=== PATIENT | female | born 1955 | race Caucasian/White ===

== ENCOUNTER 2018-11-02 18:18 | Emergency (ER) | payer BC ==
[2018-11-02] MEDS ORDERED: ONDANSETRON 4 MG TAB.RAPDIS PO ONE (21:58)
[2018-11-02] MEDS ORDERED: OXYCODONE-ACETAMINOPHEN 5-325 MG TABLET PO ONE (21:58)
--- NOTE | 2018-11-02 22:00 | ER Document Report ---
ED Medical Screen (RME) - General Chief Complaint: Chest Pain Stated Complaint: CHEST PAIN Time Seen by Provider: 11/02/18 21:54 Primary Care Provider: YVAN RUEDA MD [Primary Care Provider] - Follow up as needed Notes: 63-year-old female with chief complaint of upper abdominal pain, worse on the right side, started hurting around 5 PM, pain became much worse afterwards and then she vomited. She thinks she was diagnosed with a gallstone years ago but she is uncertain. She denies any abdominal surgeries. She denies chest pain, shortness of breath, dizziness, fever. TRAVEL OUTSIDE OF THE [place] IN LAST 30 DAYS: No - Related Data Allergies/Adverse Reactions: ibuprofen Allergy (Verified 07/13/17 16:08) INCREASE HEART RATE Past Medical History - Past Medical History Cardiac Medical History: Reports: Hx Hypercholesterolemia, Hx Hypertension Denies: Hx Coronary Artery Disease, Hx Heart Attack Pulmonary Medical History: Reports: Hx Pneumonia Denies: Hx Asthma, Hx Bronchitis, Hx COPD Neurological Medical History: Denies: Hx Cerebrovascular Accident, Hx Seizures Musculoskeltal Medical History: Reports Hx Arthritis - BACK Past Surgical History: Reports: Hx Gynecologic Surgery - D&C - Immunizations Hx Diphtheria, Pertussis, Tetanus Vaccination: Yes History of Influenza Vaccine for 06/2017 - 11/2017 Season: No Physical Exam - Vital signs Vitals: Temp Pulse Resp BP Pulse Ox 98.6 F 67 16 150/58 H 96 11/02/18 18:56 11/02/18 18:56 11/02/18 18:56 11/02/18 18:56 11/02/18 18:56 - Abdominal Tenderness: Tender - Tender in the right upper quadrant and the epigastric area, remaining abdomen benign Course - Vital Signs Vital signs: Temp Pulse Resp BP Pulse Ox 98.6 F 67 16 150/58 H 96 11/02/18 18:56 11/02/18 18:56 11/02/18 18:56 11/02/18 18:56 11/02/18 18:56 Doctor's Discharge - Discharge Referrals: YVAN RUEDA MD [Primary Care Provider] - Follow up as needed
[2018-11-02 22:45] LABS: ABSOLUTE BASOPHILS # (AUTO) 0.1 10^3/uL (0.0-0.2); ABSOLUTE EOSINOPHILS # (AUTO) 0.1 10^3/uL (0.0-0.6); ABSOLUTE LYMPHOCYTES (AUTO) 1.8 10^3/uL (0.5-4.7); ABSOLUTE MONOCYTES (AUTO) 0.8 10^3/uL (0.1-1.4); ABSOLUTE NEUT (AUTO) 9.3 10^3/uL (1.7-8.2); BASOPHILS % (AUTO) 0.4 % (0-2); EOSINOPHILS % (AUTO) 0.4 % (0-6); HEMATOCRIT 41.5 % (36.0-47.0); HEMOGLOBIN 14.3 g/dL (12.0-15.5); MEAN CORPUSCULAR HEMOGLOBIN 29.8 pg (27.0-33.4); MEAN CORPUSCULAR HGB CONC 34.4 g/dL (32.0-36.0); MEAN CORPUSCULAR VOLUME 87 fl (80-97); MONOCYTES % (AUTO) 6.3 % (3-13); PLATELET COUNT 330 10^3/uL (150-450); RED BLOOD COUNT 4.78 10^6/uL (3.72-5.28); RED CELL DISTRIBUTION WIDTH 13.9 % (11.5-14.0); SEGMENTED NEUTROPHILS % (AUTO) 77.9 % (42-78); TOTAL CELLS COUNTED % (AUTO) 100 %; WHITE BLOOD COUNT 11.9 10^3/uL (4.0-10.5)
[2018-11-02 22:51] LABS: APPEARANCE,URINE SLIGHTLY-CLOUDY; BILIRUBIN,URINE NEGATIVE (NEGATIVE); COLOR,URINE DARK YELLOW; GLUCOSE, URINE NEGATIVE (NEGATIVE); KETONES,URINE NEGATIVE (NEGATIVE); LEUKOCYTE ESTERASE,URINE NEGATIVE (NEGATIVE); NITRITE,URINE NEGATIVE (NEGATIVE); PROTEIN,URINE NEGATIVE (NEGATIVE); URINE SPECIFIC GRAVITY 1.026
[2018-11-02 23:08] LABS: ALANINE AMINOTRANSFERASE 77 U/L (9-52); ALBUMIN 4.1 g/dL (3.5-5.0); ALKALINE PHOSPHATASE 144 U/L (38-126); ANION GAP 10 (5-19); ASPARTATE AMINO TRANSFERASE 190 U/L (14-36); BILIRUBIN,DIRECT 0.8 mg/dL (0.0-0.4); BILIRUBIN,TOTAL 1.2 mg/dL (0.2-1.3); BLOOD UREA NITROGEN 10 mg/dL (7-20); CALCIUM 9.1 mg/dL (8.4-10.2); CARBON DIOXIDE 27 mmol/L (22-30); CHLORIDE 104 mmol/L (98-107); GLUCOSE 140 mg/dL (75-110); LIPASE 104.7 U/L (23-300); POTASSIUM 4.3 mmol/L (3.6-5.0); SODIUM 141.3 mmol/L (137-145); TOTAL PROTEIN 6.7 g/dL (6.3-8.2)
--- NOTE | 2018-11-02 23:30 | RADIOLOGY REPORT (SQ) ---
EXAM DESCRIPTION: US ABDOMEN LIMITED COMPLETED DATE/TME: 11/02/2018 21:58 CLINICAL HISTORY: 63 years, Female, RUQ pain, vomiting COMPARISON: None. TECHNIQUE: Limited right upper quadrant ultrasound LIMITATIONS: None. FINDINGS: Diffuse increased echogenicity of the liver consistent with diffuse fatty infiltrative change. No focal liver lesions. Large shadowing stone in the gallbladder lumen. There is also suggestion of adenomyomatosis. Negative sonographic Ayon sign. No pericholecystic fluid. Borderline gallbladder wall thickening at 3.5 mm. CBD measures 4.2 mm. Visualized right kidney and pancreas is unremarkable. Visualized abdominal aorta and inferior vena cava unremarkable. No ascites. IMPRESSION: Cholelithiasis. No sonographic evidence for cholecystitis. Fatty infiltrative change to the liver. Adenomyomatosis of the gallbladder copyright 2010 [employer]- All Rights Reserved
[2018-11-03 02:21] VITALS: BP 133/63
--- NOTE | 2018-11-03 02:32 | ER Document Report ---
ED General - General Chief Complaint: Abdominal Pain Stated Complaint: CHEST PAIN Time Seen by Provider: 11/02/18 21:54 Primary Care Provider: YVAN RUEDA MD [NO LOCAL MD] - Follow up as needed ORTEGA FAIRBANKS MD [ACTIVE STAFF] - Follow up in 3-5 days Notes: Patient is a 63-year-old female without abdominal surgical history who presents complaining of upper abdominal pain that started approximately 1700 tonight. Patient states that started approximately 1-2 hours after eating a fatty meal. She states it is described as a throbbing, aching, constant pain in the upper abdomen worse towards the right upper quadrant. She notes that nothing seemed to improve or worsen the pain when present. Did have one episode of nonbilious vomiting in triage. Has a history of similar pain in the past although never to this degree of severity. She did try Prilosec without relief. Has not seen her primary care doctor regarding today's concerns. Denies fever or constitutional symptoms. At the time of my evaluation she denies any abdominal pain TRAVEL OUTSIDE OF THE [place] IN LAST 30 DAYS: No - Related Data Allergies/Adverse Reactions: ibuprofen Allergy (Verified 11/02/18 22:19) INCREASE HEART RATE Past Medical History - General Information source: Patient - Social History Smoking Status: Never Smoker Frequency of alcohol use: None Drug Abuse: None Lives with: Spouse/Significant other Family History: Reviewed & Not Pertinent Patient has suicidal ideation: No Patient has homicidal ideation: No - Past Medical History Cardiac Medical History: Reports: Hx Hypercholesterolemia, Hx Hypertension Denies: Hx Coronary Artery Disease, Hx Heart Attack Pulmonary Medical History: Reports: Hx Pneumonia Denies: Hx Asthma, Hx Bronchitis, Hx COPD Neurological Medical History: Denies: Hx Cerebrovascular Accident, Hx Seizures Renal/ Medical History: Denies: Hx Peritoneal Dialysis Musculoskeletal Medical History: Reports Hx Arthritis - BACK Past Surgical History: Reports: Hx Gynecologic Surgery - D&C - Immunizations Hx Diphtheria, Pertussis, Tetanus Vaccination: Yes Review of Systems - Review of Systems Notes: Constitutional: Negative for fever. HENT: Negative for sore throat. Eyes: Negative for visual changes. Cardiovascular: Negative for chest pain. Respiratory: Negative for shortness of breath. Gastrointestinal: Positive for abdominal pain and vomiting Genitourinary: Negative for dysuria. Musculoskeletal: Negative for back pain. Skin: Negative for rash. Neurological: Negative for headaches, weakness or numbness. 10 point ROS negative except as marked above and in HPI. Physical Exam - Vital signs Vitals: Temp Pulse Resp BP Pulse Ox 98.6 F 67 16 150/58 H 96 11/02/18 18:56 11/02/18 18:56 11/02/18 18:56 11/02/18 18:56 11/02/18 18:56 Interpretation: Hypertensive Notes: PHYSICAL EXAMINATION: GENERAL: Well-appearing, well-nourished and in no acute distress. HEAD: Atraumatic, normocephalic. EYES: Pupils equal round and reactive to light, extraocular movements intact, sclera anicteric, conjunctiva are normal. ENT: nares patent, oropharynx clear without exudates. Moist mucous membranes. NECK: Normal range of motion, supple without lymphadenopathy LUNGS: Breath sounds clear to auscultation bilaterally and equal. No wheezes rales or rhonchi. HEART: Regular rate and rhythm without murmurs ABDOMEN: Soft, nontender, normoactive bowel sounds. No guarding, no rebound. No masses appreciated. EXTREMITIES: Normal range of motion, no pitting or edema. No cyanosis. NEUROLOGICAL: No focal neurological deficits. Moves all extremities spontaneously and on command. PSYCH: Normal mood, normal affect. SKIN: Warm, Dry, normal turgor, no rashes or lesions noted. Course - Re-evaluation Re-evalutation: 11/03/18 02:29 Patient presents clinical history and exam most consistent with symptomatic cholelithiasis. Patient has had progressive worsening of right upper quadrant pain worsened by eating. Vitals within acceptable limits. Laboratories do not demonstrate a significant leukocytosis, or an elevated lipase. Mild LFT derangements although these appear to be more consistent with a pattern of fatty liver infiltrate which is demonstrated on right upper quadrant ultrasound. Common bile duct normal measurement at 4.2 mm. At the time of my assessment the patient has no abdominal tenderness on exam. She also denies any ongoing pain. A right upper quadrant ultrasound does not demonstrate evidence of acute cholecystitis but does show cholelithiasis. I have referred the patient to our general surgeon and informed her that she will likely need her gallbladder out as an outpatient. At this time will discharge with return precautions and follow-up recommendations. Verbal discharge instructions given a the bedside and opportunity for questions given. Medication warnings reviewed. Patient is in agreement with this plan and has verbalized understanding of return precautions and the need for primary care follow-up in the next 24-72 hours. - Vital Signs Vital signs: Temp Pulse Resp BP Pulse Ox 97.4 F 65 16 133/63 H 100 11/03/18 02:20 11/03/18 02:20 11/03/18 02:20 11/03/18 02:20 11/03/18 02:20 - Laboratory Result Diagrams: 11/02/18 22:15 11/02/18 22:15 Laboratory results interpreted by me: 11/02/18 11/02/18 11/02/18 22:15 22:15 22:15 WBC 11.9 H Absolute Neutrophils 9.3 H Glucose 140 H Direct Bilirubin 0.8 H AST 190 H ALT 77 H Alkaline Phosphatase 144 H Urine Blood LARGE H Urine Urobilinogen 4.0 H - Diagnostic Test Radiology reviewed: Reports reviewed Discharge - Discharge Clinical Impression: Symptomatic cholelithiasis, Right upper quadrant abdominal pain Nausea and vomiting Qualifiers: Vomiting type: unspecified Vomiting Intractability: non-intractable Qualified Code(s): R11.2 - Nausea with vomiting, unspecified Condition: Good Disposition: HOME, SELF-CARE Additional Instructions: You have gallstones that are causing your symptoms. Be sure to avoid fat containing foods until you follow-up with a surgeon to have the gallbladder removed as eating these foods will trigger your pain. Please return to the emergency department if you develop a fever greater than 100.4F, persistent vomiting, worsening of your pain, or any other symptoms that are worrisome to you. Referrals: YVAN RUEDA MD [NO LOCAL MD] - Follow up as needed ORTEGA FAIRBANKS MD [ACTIVE STAFF] - Follow up in 3-5 days
--- NOTE | 2018-11-03 20:03 | EKG REPORT ---
SEVERITY:- NORMAL ECG - SINUS RHYTHM : Confirmed by: Rhea Eisenberg 03-Nov-2018 20:02:39
== END 2018-11-03 02:37 | disposition home or self-care (01) ==
LOC: ER 18:18
DX: K80.20 Calculus of gallbladder without cholecystitis without obstruction (principal); R10.11 Right upper quadrant pain; R11.2 Nausea with vomiting, unspecified; I10 Essential (primary) hypertension; Z88.6 Allergy status to analgesic agent
CPT/HCPCS: 93005; 99284; 36415; 83690; 85025; 80053; 81001; 76705; 93010; S0119

== ENCOUNTER 2019-09-20 11:47 | Emergency (ER) | payer MEDICARE ==
--- NOTE | 2019-09-20 12:35 | ER Document Report ---
ED Medical Screen (RME) - General Chief Complaint: Leg Swelling Stated Complaint: POSSIBLE BLOOD CLOT LEFT/PAIN,SWOLLEN Time Seen by Provider: 09/20/19 12:30 Primary Care Provider: SHELDON FONSECA MD [Primary Care Provider] - Follow up as needed TRAVEL OUTSIDE OF THE [place] IN LAST 30 DAYS: No - HPI Notes: 09/20/19 12:34 Patient is a 64-year-old female with a history of A. fib (currently not on her blood thinner for upcoming [employer] surgery) presents complaining of left lower extremity redness and soreness that began yesterday. Patient states that the entire posterior leg is sore, but the redness is lower anterior. Denies injury. Patient is also complaining of darker colored urine with a smell. Denies fever, chest pain, shortness of breath, abdominal pain, nausea/vomit ing/diarrhea. I have treated and performed a rapid initial assessment of this patient. A comprehensive ED assessment and evaluation of the patient, analysis of test results and completion of medical decision making process will be conducted by additional ED providers. PHYSICAL EXAMINATION: GENERAL: Well-appearing, well-nourished and in no acute distress. A&Ox4. Answers questions appropriately. Extremities: There is mild erythema and tenderness associated with lower extremity anteriorly of the left leg. There is mild tenderness the posterior leg. Trace edema bilaterally. - Related Data Allergies/Adverse Reactions: ibuprofen Adverse Reaction (Verified 09/20/19 12:21) INCREASE HEART RATE Home Medications: A fib medications Past Medical History - Social History Chew tobacco use (# tins/day): No Drug Abuse: None - Past Medical History Cardiac Medical History: Reports: Hx Hypercholesterolemia, Hx Hypertension Denies: Hx Coronary Artery Disease, Hx Heart Attack Pulmonary Medical History: Reports: Hx Pneumonia Denies: Hx Asthma, Hx Bronchitis, Hx COPD Neurological Medical History: Denies: Hx Cerebrovascular Accident, Hx Seizures Renal/ Medical History: Denies: Hx Peritoneal Dialysis Musculoskeltal Medical History: Reports Hx Arthritis - BACK Past Surgical History: Reports: Hx Gynecologic Surgery - D&C - Immunizations Hx Diphtheria, Pertussis, Tetanus Vaccination: Yes Physical Exam - Vital signs Vitals: Temp Pulse Resp BP Pulse Ox 98.0 F 72 16 145/64 H 95 09/20/19 11:58 09/20/19 11:58 09/20/19 11:58 09/20/19 11:58 09/20/19 11:58 Course - Vital Signs Vital signs: Temp Pulse Resp BP Pulse Ox 98.0 F 72 16 145/64 H 95 09/20/19 11:58 09/20/19 11:58 09/20/19 11:58 09/20/19 11:58 09/20/19 11:58 Doctor's Discharge - Discharge Referrals: SHELDON FONSECA MD [Primary Care Provider] - Follow up as needed
[2019-09-20 13:05] LABS: ABSOLUTE BASOPHILS # (AUTO) 0.1 10^3/uL (0.0-0.2); ABSOLUTE EOSINOPHILS # (AUTO) 0.2 10^3/uL (0.0-0.6); ABSOLUTE LYMPHOCYTES (AUTO) 1.8 10^3/uL (0.5-4.7); LYMPHOCYTES % (AUTO) 18.2 % (13-45); RED CELL DISTRIBUTION WIDTH 13.8 % (11.5-14.0); TOTAL CELLS COUNTED % (AUTO) 100 %
[2019-09-20 13:11] LABS: ABSOLUTE MONOCYTES (AUTO) 0.7 10^3/uL (0.1-1.4); ABSOLUTE NEUT (AUTO) 7.3 10^3/uL (1.7-8.2); APPEARANCE,URINE SLIGHTLY-CLOUDY; BASOPHILS % (AUTO) 0.8 % (0-2); BILIRUBIN,URINE NEGATIVE (NEGATIVE); COLOR,URINE YELLOW; EOSINOPHILS % (AUTO) 2.2 % (0-6); GLUCOSE, URINE NEGATIVE (NEGATIVE); HEMATOCRIT 37.2 % (36.0-47.0); HEMOGLOBIN 12.6 g/dL (12.0-15.5); KETONES,URINE NEGATIVE (NEGATIVE); MEAN CORPUSCULAR HGB CONC 33.9 g/dL (32.0-36.0); MEAN CORPUSCULAR VOLUME 83 fl (80-97); MONOCYTES % (AUTO) 6.7 % (3-13); PLATELET COUNT 316 10^3/uL (150-450); PROTEIN,URINE NEGATIVE (NEGATIVE); RED BLOOD COUNT 4.51 10^6/uL (3.72-5.28); SEGMENTED NEUTROPHILS % (AUTO) 72.1 % (42-78); URINE SPECIFIC GRAVITY 1.018; WHITE BLOOD COUNT 10.1 10^3/uL (4.0-10.5)
[2019-09-20 13:28] LABS: ALBUMIN 3.6 g/dL (3.5-5.0); ALKALINE PHOSPHATASE 90 U/L (38-126); ANION GAP 8 (5-19); ASPARTATE AMINO TRANSFERASE 16 U/L (14-36); BILIRUBIN,DIRECT 0.2 mg/dL (0.0-0.4); BILIRUBIN,TOTAL 0.6 mg/dL (0.2-1.3); BLOOD UREA NITROGEN 8 mg/dL (7-20); CARBON DIOXIDE 27 mmol/L (22-30); CHLORIDE 107 mmol/L (98-107); GLUCOSE 84 mg/dL (75-110); TOTAL PROTEIN 6.5 g/dL (6.3-8.2)
--- NOTE | 2019-09-20 15:14 | ER Document Report ---
Doctor's Note Notes: 09/20/19 15:14 corrections identification technician called and stated that venous Doppler ultrasound preliminary results are negative.
--- NOTE | 2019-09-20 15:34 | RADIOLOGY REPORT (SQ) ---
EXAM DESCRIPTION: VENOUS UNILATERAL LOWER COMPLETED DATE/TIME: 09/20/2019 3:20 pm REASON FOR STUDY: LLE pain COMPARISON: None. TECHNIQUE: Dynamic and static maldonado scale and color images acquired of the left leg venous system. Se lected spectral images acquired with additional compression and augmentation maneuvers. The contralat eral common femoral vein and saphenofemoral junction were also imaged. Images stored on PACS. LIMITATIONS: None. FINDINGS: COMMON FEMORAL: Normal phasicity, compression and augmentation. No visualized echogenic ma terial on maldonado scale. No defects on color images. FEMORAL: Normal compression and augmentation. No visualized echogenic material on maldonado scale. No defe cts on color images. POPLITEAL: Normal compression, augmentation. No visualized echogenic material on maldonado scale. No defec ts on color images. CALF VESSELS: Normal compression, augmentation. No visualized echogenic material on maldonado scale. No de fects on color images. GSV and SSV: Normal compression, augmentation. No visualized echogenic material on maldonado scale. No def ects on color images. ANY DEEP VENOUS INSUFFICIENCY: No. ANY EVIDENCE OF POPLITEAL CYST: No. OTHER: No other finding. CONTRALATERAL COMMON FEMORAL VEIN AND SAPHENOFEMORAL JUNCTION: Normal phasicity, compression and augmentation. No visualized echogenic material on maldonado scale. No de fects on color images. IMPRESSION: NO EVIDENCE OF DVT OR SVT IN THE LEFT LEG. TECHNICAL DOCUMENTATION: JOB ID: [id number] [employer]- All Rights Reserved Reading location - IP/workstation name: [email or web address]
--- NOTE | 2019-09-20 15:50 | ER Document Report ---
ED General - General Chief Complaint: Leg Swelling Stated Complaint: POSSIBLE BLOOD CLOT LEFT/PAIN,SWOLLEN Time Seen by Provider: 09/20/19 12:30 Primary Care Provider: SHELDON FONSECA MD [Primary Care Provider] - Follow up as needed TRAVEL OUTSIDE OF THE [place] IN LAST 30 DAYS: No - HPI Notes: 64-year-old female with a chief complaint of redness pain and swelling left pretibial area. Patient reports a history of chronic atrial fibrillation and she is been on 1 of the direct thrombin inhibitors. This was stopped several days ago in preparation for an elective hysterectomy which is yet to be scheduled. Problem with left lower leg is developed over the last 2 days. Norah ent initially said she did not recall any specific trauma but now says that she has cats in a frequently scratch her lower legs. She denies fever, chills, nausea or vomiting. She denies any past history of DVT or PE. Pertinent prior history: Chronic atrial fibrillation Hyperlipidemia Current medications include metoprolol and atorvastatin. Allergies to ibuprofen with no antibiotic allergies reported. - Related Data Allergies/Adverse Reactions: ibuprofen Adverse Reaction (Verified 09/20/19 12:21) INCREASE HEART RATE Home Medications: A fib medications Past Medical History - General Information source: Patient - Social History Smoking Status: Never Smoker Chew tobacco use (# tins/day): No Drug Abuse: None Family History: Reviewed & Not Pertinent Patient has suicidal ideation: No Patient has homicidal ideation: No - Past Medical History Cardiac Medical History: Reports: Hx Atrial Fibrillation, Hx Hypercholesterolemia, Hx Hypertension Denies: Hx Coronary Artery Disease, Hx Heart Attack Pulmonary Medical History: Reports: Hx Pneumonia Denies: Hx Asthma, Hx Bronchitis, Hx COPD Neurological Medical History: Denies: Hx Cerebrovascular Accident, Hx Seizures Endocrine Medical History: Denies: Hx Diabetes Mellitus Type 1, Hx Diabetes Mellitus Type 2 Renal/ Medical History: Denies: Hx Peritoneal Dialysis Musculoskeletal Medical History: Reports Hx Arthritis - BACK Psychiatric Medical History: Reports: Hx Anxiety Past Surgical History: Reports: Hx Gynecologic Surgery - D&C - Immunizations Hx Diphtheria, Pertussis, Tetanus Vaccination: Yes Review of Systems - Review of Systems Notes: Constitutional: Negative for fever. HENT: Negative for sore throat. Eyes: Negative for visual changes. Cardiovascular: Negative for chest pain. Respiratory: Negative for shortness of breath. Gastrointestinal: Negative for abdominal pain, vomiting or diarrhea. Genitourinary: Dark urine noted recently. Musculoskeletal: Negative for back pain. Skin: As per HPI. Neurological: Negative for headaches, weakness or numbness. 10 point ROS negative except as marked above and in HPI. Physical Exam - Vital signs Vitals: Temp Pulse Resp BP Pulse Ox 98.0 F 72 16 145/64 H 95 09/20/19 11:58 09/20/19 11:58 09/20/19 11:58 09/20/19 11:58 09/20/19 11:58 - Notes Notes: GENERAL: Well-developed well-nourished elderly female appearing in no acute distress. SKIN: Skin is very dry. Chronic actinic changes over sun exposed areas. Patient has excoriations of the left pretibial region and there is redness and warmth noted here. Good turgor. HEAD: Normocephalic atraumatic. EYES: PERRLA. EOMI. Conjunctivae and sclerae clear. EARS: CANALS AND TMS CLEAR. NOSE: CLEAR. MOUTH: Moist mucosa. Good dentition. No stridor or edema. No drooling. NECK: Supple. No masses or thyromegaly. No adenopathy. Carotids 2+ without bruits. No JVD. BACK: Symmetrical without tenderness. CHEST: Respirations unlabored. Breath sounds clear and symmetrical. HEART: Regular rhythm. No murmur gallop or rub. ABDOMEN: Soft nontender without masses, organomegaly or rebound. Bowel sounds normally active. No bruits. GENITALIA: Deferred. EXTREMITIES: Left pretibial area shows 1+ edema redness warmth excoriations and anterior tenderness. No calf tenderness. There is no edema on the right side. Cap refill less than 1.5 seconds. Dorsalis pedis and posterior tibial pulses 3+ and symmetrical. NEUROLOGICAL: GCS 15. Alert and oriented x3. Normal gait. Fluent speech. Cranial nerves II through XII intact. Sensorimotor and cerebellar normal. Normal tone. PSYCHIATRIC: Appropriate affect. Course - Re-evaluation Re-evalutation: 09/20/19 15:51 Clinically the patient has cellulitis over her left pretibial area. Ultrasound was negative for DVT. I initially thought the patient simply had a dry skin condition and it possibly scratched the area and induced a cellulitis. She raises however the issue that 1 of her pet cats may have scratched her and so we would have to consider infection with Pasteurella multocida. I think she can reasonably be treated with oral antibiotics at home. - Vital Signs Vital signs: Temp Pulse Resp BP Pulse Ox 98.0 F 72 16 145/64 H 95 09/20/19 11:58 09/20/19 11:58 09/20/19 11:58 09/20/19 11:58 09/20/19 11:58 - Laboratory Result Diagrams: 09/20/19 12:39 09/20/19 12:39 Laboratory results interpreted by me: 09/20/19 12:39 Urine Urobilinogen 4.0 H 09/20/19 15:50 Chemistry profile and CBC are normal. Urinalysis showed some urobilinogen present Discharge - Discharge Clinical Impression: Cellulitis of left lower leg Condition: Stable Disposition: HOME, SELF-CARE Additional Instructions: Cellulitis You have an infection of your skin and underlying soft tissues called cellulitis. This is due to bacteria, which can enter through any break in the skin, or even through an irritated hair follicle. Untreated, cellulitis will usually worsen. Antibiotics are required. Usually, warm packs or warm soaks, and elevation of the infected area are recommended. You should start getting better within 24 to 36 hours. Most infections respond quickly to the right medication. Follow-up care is important, however, to check for abscess (boil) formation, unsuspected foreign body, or resistant infection. If you develop fever, chills, or if the area of infection is becoming rapidly more swollen or painful, call the doctor at once. Avoid unnecessary walking or standing and elevate left lower leg is much as possible. Apply warm moist compresses intermittently several times a day. Take prescribed medications as directed. Return here as needed for new or worsening symptoms: Pain that is worsening or unimproved Uncontrolled vomiting High fever or shaking chills Overall worsening Follow-up with your primary care physician within the next 3 days. Prescriptions: Amox Tr/Potassium Clavulanate [Augmentin 875-125 Tablet] 1 tab PO BID 10 Days tablet Clotrimazole/Betamethasone Dip [Lotrisone Cream 15 gm] 1 applic TP TID 10 Days #1 tube Referrals: SHELDON FONSECA MD [Primary Care Provider] - Follow up as needed
[2019-09-20 16:13] VITALS: BP 145/63
== END 2019-09-20 16:12 | disposition home or self-care (01) ==
LOC: ER 11:47
DX: L03.116 Cellulitis of left lower limb (principal); S80.812A Abrasion, left lower leg, initial encounter; X58.XXXA Exposure to other specified factors, initial encounter; R39.89 Other symptoms and signs involving the genitourinary system; E78.00 Pure hypercholesterolemia, unspecified; I10 Essential (primary) hypertension; I48.20 Chronic atrial fibrillation, unspecified; Z79.899 Other long term (current) drug therapy; Z88.8 Allergy status to other drugs, medicaments and biological substances
CPT/HCPCS: 36415; 80053; 81001; 85025; 93971; 99284

== ENCOUNTER 2019-10-24 11:18 | Emergency (ER) | payer MEDICARE ==
[2019-10-24] MEDS ORDERED: ASPIRIN 81 MG TABLET, CHEWABLE PO ONE (11:50)
--- NOTE | 2019-10-24 11:50 | ER Document Report ---
ED Medical Screen (RME) - General Chief Complaint: Chest Pain Stated Complaint: CHEST PAIN Time Seen by Provider: 10/24/19 11:46 Primary Care Provider: DONTRELL BENSON MD [Primary Care Provider] - Follow up as needed Mode of Arrival: Wheelchair Information source: Patient Notes: 64-year-old female presented to ED for complaint of right shoulder chest back and arm pain about 10 PM to 10 AM and lasted for about 45 minutes. She states it is better now. She states she did take 2 Tylenol about 10:00 when it started. She does have a history of A. fib. She states she also has high blood pressure and high cholesterol. States she does not have any history of heart attacks or heart catheterizations. The she did have a stress test about 10 years ago. He states about 5 minutes after the pain started she did have difficulty breathing she does not at this time. I have greeted and performed a rapid initial assessment of this patient. A comprehensive ED assessment and evaluation of the patient, analysis of test results and completion of medical decision making process will be conducted by an additional ED providers. TRAVEL OUTSIDE OF THE [place] IN LAST 30 DAYS: No - Related Data Allergies/Adverse Reactions: ibuprofen Adverse Reaction (Verified 09/20/19 12:21) INCREASE HEART RATE Past Medical History - Past Medical History Cardiac Medical History: Reports: Hx Atrial Fibrillation, Hx Hypercholesterolemia, Hx Hypertension Denies: Hx Coronary Artery Disease, Hx Heart Attack Pulmonary Medical History: Reports: Hx Pneumonia Denies: Hx Asthma, Hx Bronchitis, Hx COPD Neurological Medical History: Denies: Hx Cerebrovascular Accident, Hx Seizures Endocrine Medical History: Denies: Hx Diabetes Mellitus Type 1, Hx Diabetes Mellitus Type 2 Renal/ Medical History: Denies: Hx Peritoneal Dialysis Musculoskeltal Medical History: Reports Hx Arthritis - BACK Psychiatric Medical History: Reports: Hx Anxiety Past Surgical History: Reports: Hx Gynecologic Surgery - D&C - Immunizations Hx Diphtheria, Pertussis, Tetanus Vaccination: Yes Physical Exam - Vital signs Vitals: Temp Pulse Resp BP Pulse Ox 98.3 F 66 16 139/64 H 95 10/24/19 11:34 10/24/19 11:34 10/24/19 11:34 10/24/19 11:34 10/24/19 11:34 Course - Vital Signs Vital signs: Temp Pulse Resp BP Pulse Ox 98.3 F 66 16 139/64 H 95 10/24/19 11:34 10/24/19 11:34 10/24/19 11:34 10/24/19 11:34 10/24/19 11:34 Doctor's Discharge - Discharge Referrals: DONTRELL BENSON MD [Primary Care Provider] - Follow up as needed
[2019-10-24 12:33] LABS: ABSOLUTE EOSINOPHILS # (AUTO) 0.1 10^3/uL (0.0-0.6); ABSOLUTE LYMPHOCYTES (AUTO) 2.1 10^3/uL (0.5-4.7); ABSOLUTE MONOCYTES (AUTO) 0.5 10^3/uL (0.1-1.4); ABSOLUTE NEUT (AUTO) 5.3 10^3/uL (1.7-8.2); BASOPHILS % (AUTO) 0.5 % (0-2); EOSINOPHILS % (AUTO) 1.8 % (0-6); HEMOGLOBIN 12.7 g/dL (12.0-15.5); LYMPHOCYTES % (AUTO) 25.4 % (13-45); MEAN CORPUSCULAR HEMOGLOBIN 27.7 pg (27.0-33.4); MEAN CORPUSCULAR HGB CONC 34.4 g/dL (32.0-36.0); MEAN CORPUSCULAR VOLUME 80 fl (80-97); MONOCYTES % (AUTO) 6.1 % (3-13); PLATELET COUNT 330 10^3/uL (150-450); RED CELL DISTRIBUTION WIDTH 14.5 % (11.5-14.0); SEGMENTED NEUTROPHILS % (AUTO) 66.2 % (42-78); TOTAL CELLS COUNTED % (AUTO) 100 %; WHITE BLOOD COUNT 8.1 10^3/uL (4.0-10.5)
[2019-10-24 13:04] LABS: ALBUMIN 3.6 g/dL (3.5-5.0); ALKALINE PHOSPHATASE 100 U/L (38-126); ANION GAP 9 (5-19); ASPARTATE AMINO TRANSFERASE 17 U/L (14-36); BILIRUBIN,TOTAL 0.3 mg/dL (0.2-1.3); BLOOD UREA NITROGEN 7 mg/dL (7-20); CALCIUM 8.7 mg/dL (8.4-10.2); CARBON DIOXIDE 25 mmol/L (22-30); CHLORIDE 106 mmol/L (98-107); GLUCOSE 100 mg/dL (75-110); POTASSIUM 3.8 mmol/L (3.6-5.0); TOTAL PROTEIN 6.2 g/dL (6.3-8.2)
--- NOTE | 2019-10-24 13:20 | RADIOLOGY REPORT (SQ) ---
EXAM DESCRIPTION: CHEST 2 VIEWS COMPLETED DATE/TIME: 10/24/2019 1:10 pm REASON FOR STUDY: chest pain COMPARISON: AP chest 12/28/2014 EXAM PARAMETERS: NUMBER OF VIEWS: two views TECHNIQUE: Digital Frontal and Lateral radiographic views of the chest acquired. RADIATION DOSE: NA LIMITATIONS: none FINDINGS: LUNGS AND PLEURA: No opacities, masses or pneumothorax. No pleural effusion. MEDIASTINUM AND HILAR STRUCTURES: No masses or contour abnormalities. HEART AND VASCULAR STRUCTURES: Mild cardiomegaly BONES: No acute findings. HARDWARE: None in the chest. OTHER: Calcified 3 cm gallstone right upper quadrant IMPRESSION: NO ACUTE RADIOGRAPHIC FINDING IN THE CHEST. TECHNICAL DOCUMENTATION: JOB ID: [id number] [email or web address]- All Rights Reserved Reading location - IP/workstation name: [email or web address]
--- NOTE | 2019-10-24 15:09 | ER Document Report ---
ED General - General Chief Complaint: Chest Pain Stated Complaint: CHEST PAIN Time Seen by Provider: 10/24/19 11:46 Primary Care Provider: DONTRELL BENSON MD [NO LOCAL MD] - Follow up as needed Mode of Arrival: Wheelchair Information source: Patient TRAVEL OUTSIDE OF THE [place] IN LAST 30 DAYS: No - HPI Onset: This morning Onset/Duration: Sudden Quality of pain: Sharp Severity: Moderate Pain Level: 2 Associated symptoms: Shortness of breath. denies: Nausea, Vomiting Exacerbated by: Denies Relieved by: Denies Similar symptoms previously: No Recently seen / treated by doctor: No Notes: 64 year old female with a history of AFib, HTN, HLD, Gallstones, Anxiety here for right sided chest and shoulder pain which started around 1015am while sitting down. The patient says she has had pain in her RUQ from her gallbladder but never in her right chest like she did today. The patient says she was somewhat short of breath when the pain started and she had some numbness and ti ngling in her right fingers. The patient says she took tylenol and this eased the pain. The pain went away while she was on her way to the ER and lasted about 45min. The patient says she had a cardiac stress test which was normal about 4 years ago. - Related Data Allergies/Adverse Reactions: ibuprofen Adverse Reaction (Verified 09/20/19 12:21) INCREASE HEART RATE Home Medications: Flovent, Lovastatin, Metoprolol, Venlafaxine, Proair Past Medical History - General Information source: Patient - Social History Smoking Status: Never Smoker Frequency of alcohol use: None Drug Abuse: None Lives with: Spouse/Significant other Family History: Reviewed & Not Pertinent Patient has suicidal ideation: No Patient has homicidal ideation: No - Past Medical History Cardiac Medical History: Reports: Hx Atrial Fibrillation, Hx Hypercholester olemia, Hx Hypertension Denies: Hx Coronary Artery Disease, Hx Heart Attack Pulmonary Medical History: Reports: Hx Pneumonia Denies: Hx Asthma, Hx Bronchitis, Hx COPD Neurological Medical History: Denies: Hx Cerebrovascular Accident, Hx Seizures Endocrine Medical History: Denies: Hx Diabetes Mellitus Type 1, Hx Diabetes M ellitus Type 2 Renal/ Medical History: Denies: Hx Peritoneal Dialysis Musculoskeletal Medical History: Reports Hx Arthritis - BACK, FIRBROMYALGIA Psychiatric Medical History: Reports: Hx Anxiety Past Surgical History: Reports: Hx Gynecologic Surgery - D&C - Immunizations Hx Diphtheria, Pertussis, Tetanus Vaccination: Yes Review of Systems - Review of Systems Constitutional: No symptoms reported EENT: No symptoms reported Cardiovascular: Chest pain Respiratory: Short of breath Gastrointestinal: No symptoms reported Genitourinary: No symptoms reported Female Genitourinary: No symptoms reported Musculoskeletal: No symptoms reported Skin: No symptoms reported Hematologic/Lymphatic: No symptoms reported Neurological/Psychological: Other - mild numbness and tingling in righ hand an fingers when she had the chest pains -: Yes All other systems reviewed and negative Physical Exam - Vital signs Vitals: Temp Pulse Resp BP Pulse Ox 98.3 F 66 16 139/64 H 95 10/24/19 11:34 10/24/19 11:34 10/24/19 11:34 10/24/19 11:34 10/24/19 11:34 - Notes Notes: GENERAL: Well-appearing, well-nourished and in no acute distress. HEAD: Atraumatic, normocephalic. EYES: Pupils equal round and reactive to light, extraocular movements intact, sclera anicteric, conjunctiva are normal. ENT: TMs normal, nares patent, oropharynx clear without exudates. Moist mucous membranes. NECK: Normal range of motion, supple without lymphadenopathy or JVD. LUNGS: Breath sounds clear to auscultation bilaterally and equal. No wheezes rales or rhonchi. HEART: Regular rate and rhythm without murmurs, rubs or gallops. ABDOMEN: Soft, nontender, normoactive bowel sounds. No guarding, no rebound. No masses appreciated. EXTREMITIES: Normal range of motion, no pitting or edema. No clubbing or cyanosis. NEUROLOGICAL: Cranial nerves II through XII grossly intact. Normal speech, normal gait. PSYCH: Normal mood, normal affect. SKIN: Warm, Dry, normal turgor, no rashes or lesions noted. Course - Re-evaluation Re-evalutation: 10/24/19 16:58 The patient is here for right sided chest pain which radiated to her right shoulder. She has some cardiac risk factors but her story does not sound all that concerning for ACS. On top of this, the patient has a gallstone in her gallbladder with sludge and some mild gallbladder wall thickening. Referred pain to her right chest and shoulder seem most likely to me at this time. Plan to get 2 set of Trops and have her follow up with a Plating Machine Operator for a stress test. Plan also for patient to follow up with General Surgery. 10/24/19 18:29 Patient had 2 completely negative Trops. - Vital Signs Vital signs: Temp Pulse Resp BP Pulse Ox 98.3 F 66 16 139/64 H 94 10/24/19 11:34 10/24/19 11:34 10/24/19 11:34 10/24/19 11:34 10/24/19 12:28 - Laboratory Result Diagrams: 10/24/19 12:00 10/24/19 12:00 Laboratory results interpreted by me: 10/24/19 10/24/19 12:00 12:00 RDW 14.5 H Total Protein 6.2 L - Diagnostic Test Radiology reviewed: Image reviewed, Reports reviewed - EKG Interpretation by Me EKG shows normal: Sinus rhythm, [place], Intervals, QRS Complexes, ST-T Waves Rate: Normal Discharge - Discharge Clinical Impression: Chest pain Qualifiers: Chest pain type: unspecified Qualified Code(s): R07.9 - Chest pain, unspecified Cholelithiases Qualifiers: Cholelithiasis location: gallbladder Cholecystitis presence: without cholecystitis Biliary obstruction: without biliary obstruction Qualified Code(s): K80.20 - Calculus of gallbladder without cholecystitis without obstruction Condition: Stable Disposition: HOME, SELF-CARE Instructions: Chest Pain of Unclear Cause ([facility]), Gallbladder Disease ([facility]) Additional Instructions: Follow up with a General Surgeon for evaluation for possible gallbladder removal. Also follow up with your primary care doctor and with a Plating Machine Operator for an outpatient cardiac stress test. Return to an ER for uncontrolled abdominal or chest pain, fevers, chills, sweats or if worse in anyway. Use Bentyl for abdominal pains. Prescriptions: Dicyclomine HCl [Bentyl 20 mg Tablet] 20 mg PO QIDP PRN #20 tablet PRN Reason: Referrals: DONTRELL BENSON MD [NO LOCAL MD] - Follow up as needed ORTEGA FAIRBANKS MD [ACTIVE STAFF] - Follow up as needed YOSELIN JAMISON MD [ACTIVE STAFF] - Follow up as needed
--- NOTE | 2019-10-24 16:54 | RADIOLOGY REPORT (SQ) ---
EXAM DESCRIPTION: U/S ABDOMEN LIMITED W/O DOP COMPLETED DATE/TIME: 10/24/2019 4:26 pm REASON FOR STUDY: rule out cholecystitis. has a hx of gallstones COMPARISON: Abdominal ultrasound 11/02/2018 CT angio chest 12/29/2014 TECHNIQUE: Dynamic and static grayscale images acquired of the abdomen and recorded on PACS. Additio nal selected color Doppler and spectral images recorded. LIMITATIONS: None. FINDINGS: PANCREAS: Midline pancreas unremarkable LIVER: Echogenic liver difficult to penetrate with the ultrasound energy from fatty infiltration. No gross masses or intrahepatic biliary ductal dilatation. Liver normal size. LIVER VASCULATURE: Normal directional flow of the main portal vein and hepatic veins. GALLBLADDER: Contracted around a 3 x 2 cm stone. Gallbladder sludge in the fundus. Gallbladder wall thickening. No gross pericholecystic fluid ULTRASOUND-DETECTED VELA'S SIGN: Negative. INTRAHEPATIC DUCTS AND COMMON DUCT: CBD at the ashley hepatis 7 mm in diameter. Distal most common du ct not well seen due to duodenum gas. Distal ductal stone could not be excluded INFERIOR VENA CAVA: Normal flow. AORTA: No aneurysm. RIGHT KIDNEY: Normal size. Normal echogenicity. No solid or suspicious masses. No hydronephrosis. No calcifications. PERITONEAL AND RIGHT PLEURAL SPACE: No ascites or effusions. OTHER: No other significant findings. IMPRESSION: Fatty liver Gallbladder contracted around a 3 x 2 cm gallstone. Sludge in the fundus. Mild gallbladder wall thi ckening. TECHNICAL DOCUMENTATION: JOB ID: [id number] [employer]- All Rights Reserved Reading location - IP/workstation name: [email or web address]
[2019-10-24 18:43] VITALS: BP 124/63
--- NOTE | 2019-10-25 12:54 | EKG REPORT ---
SEVERITY:- NORMAL ECG - SINUS RHYTHM : Confirmed by: Rhea Eisenberg 25-Oct-2019 12:53:57
== END 2019-10-24 18:45 | disposition home or self-care (01) ==
LOC: ER 11:18
DX: K80.20 Calculus of gallbladder without cholecystitis without obstruction (principal); R07.9 Chest pain, unspecified; R06.02 Shortness of breath; I48.91 Unspecified atrial fibrillation; I10 Essential (primary) hypertension
CPT/HCPCS: 93005; 99285; 36415; 83690; 85025; 80053; 84484; 71046; 76705; 93010; A9270